=== PATIENT | male | born 1995 | race Caucasian/White ===

== ENCOUNTER 2018-05-25 20:11 | Emergency (ER) | payer MEDICAID ==
[~2018-05-25] VITALS: Ht 170.2 cm; Wt 89.4 kg
[2018-05-25 20:18] VITALS: Ht 170.2 cm; Wt 89.4 kg
[2018-05-25 21:48] VITALS: BP 133/78
== END 2018-05-25 21:48 | disposition home or self-care (01) ==
LOC: ED 20:11
DX: G51.0 Bell's palsy (principal)
CPT/HCPCS: J7512